=== PATIENT | female | born 1950 | race Caucasian/White ===

== ENCOUNTER → 2016-11-24 | Day surgery (SDC) | payer OTHER ==
[~2016-11-24] MED LIST: ATOR40TA49 PO; CHOL50006 PO; DULO20 PO; ECASA PO; LACTATED RINGER'S 1000 ML INJ 1,000 ML ONE; MOBI7.5T PO; ONABOTULINUMTOXINA INJ 100 UNITS/VIAL ONE; OXYB5TAB PO; PROB1TAB4 PO; PROPOFOL 200 MG/20 ML AMP IV ONE; PROT40TA PO; SODIUM CHLORIDE 0.9% INJ 10 ML ONE; [UNRECOGNIZED DRUG - CODE] PO
== END | disposition home or self-care (01) ==
LOC: ESDC 08:34
PROVIDERS: ATTEND Internal Medicine Gastroenterology
DX: K31.84 Gastroparesis (principal); K44.9 Diaphragmatic hernia without obstruction or gangrene; K29.70 Gastritis, unspecified, without bleeding; K20.9 Esophagitis, unspecified
CPT/HCPCS: 00740; 43236; 43239; 88305; 88312; J0585; J3010; J7120

== ENCOUNTER 2017-04-24 12:22 | Emergency (ER) | payer OTHER ==
[~2017-04-24] VITALS: Ht 154.9 cm; Wt 58.0 kg
[~2017-04-24 12:22] MED LIST changes: -LACTATED RINGER'S 1000 ML INJ 1,000 ML ONE; -ONABOTULINUMTOXINA INJ 100 UNITS/VIAL ONE; -PROPOFOL 200 MG/20 ML AMP IV ONE; -SODIUM CHLORIDE 0.9% INJ 10 ML ONE
[2017-04-24 12:28] VITALS: BP 147/71; PULSE 73; RESP 16; TEMP 98.2; O2SAT 99
[2017-04-24 13:31] VITALS: PULSE 102; RESP 16; O2SAT 98
[2017-04-24] MEDS ORDERED: ACETAMINOPHEN 325 MG TAB PO ONE (14:45)
--- NOTE | 2017-04-24 15:39 | RADRPT ---
EXAM DATE/TIME: 04/24/2017 14:59 [facility] COMPARISON: CT BRAIN W/O CONTRAST, April 03, 2016, 16:36. INDICATIONS : Trauma. Shelf fell and hit her on her forehead. Bruising and pain on forehead. RADIATION DOSE: 64.66 CTDIvol (mGy) MEDICAL HISTORY : Gastroparesis. Irritable bowel syndrome. Posterior fossa disease. SURGICAL HISTORY : Cholecystectomy. Hysterectomy. ENCOUNTER: Initial ACUITY: 1 day PAIN SCALE: 6/10 LOCATION: frontal TECHNIQUE: Multiple contiguous axial images were obtained of the head. Using automated exposure control and adj ustment of the mA and/or kV according to patient size, radiation dose was kept as low as reasonably a chievable to obtain optimal diagnostic quality images. DICOM format image data is available electro nically for review and comparison. FINDINGS: CEREBRUM: The ventricles are normal for age. No evidence of midline shift, mass lesion, hemorrhage or acute in farction. No extra-axial fluid collections are seen. POSTERIOR FOSSA: The cerebellum and brainstem are intact. The 4th ventricle is midline. The cerebellopontine angle i s unremarkable. EXTRACRANIAL: The visualized portion of the orbits is intact. SKULL: The calvaria is intact. No evidence of skull fracture. CONCLUSION: No acute disease. Parviz Lyon Jr., MD on April 24, 2017 at 15:25 Board Certified Radiologist. This report was verified electronically.
--- NOTE | 2017-04-24 16:05 | PD ---
HPI Chief Complaint: Injury Time Seen by Provider: 14:05 Travel History International Travel<30 days: Yes Contact w/Intl Traveler<30days: [place] Traveled to: [facility] [place] Traveled to known affect area: No History of Present Illness HPI A rack of frozen pizzas fell onto patient causing head trauma, RLE contusion, no LOC, no n/v. no neurologic complaints. pt states she has a hx of lower brain swelling, as described by her. no additional complaints. 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 difficulty walking,cataract) Musculoskeletal: Yes (arthritis) Neurologic: No Psychiatric: Yes (panic attack disorder) Reproductive: No Respiratory: No Thyroid Disease: No Tetanus Vaccination: < 5 Years ?: Not Menopausal: Yes Past Surgical History Abdominal Surgery: Yes (lap tio) AICD: No Body Medical Devices: JUAN DAVID R GREAT TOE, SPINAL CORD STIMULATOR Cardiac Surgery: No Cholecystectomy: Yes (2005) Ear Surgery: No Endocrine Surgery: No Eye Surgery: Yes (CATARACT BILATERAL) Genitourinary Surgery: Yes Gynecologic Surgery: Yes (hysterectomy) Hysterectomy: Yes Joint Replacement: No Neurologic Surgery: No Oral Surgery: Yes (WISDOM TEETH EXTRACTION) Pacemaker: No Thoracic Surgery: No Other Surgery: Yes Social History Alcohol Use: Yes (occu) Tobacco Use: No Substance Use: No Allergies-Medications (Allergen,Severity, Reaction): Coded Allergies: No Known Allergies (Verified , 04/26/15) Reported Meds & Prescriptions Reported Meds & Active Scripts Active Lipitor 40 Mg Tab (Atorvastatin Calcium) 40 Mg Tab 40 Mg PO HS 30 Days Aspirin EC (Aspirin) 325 Mg Tab 325 Mg PO DAILY 30 Days Reported Oxybutynin Chloride 5 Mg Tab 5 Mg PO DAILY Protonix (Pantoprazole Sodium) 40 Mg Tabdr 40 Mg PO DAILY Cymbalta (Duloxetine HCl) 20 Mg Cap 20 Mg PO DAILY Vitamin B12 (Cyanocobalamin) 1,000 Cr Tab 500 Mg PO DAILY Vitamin D (Cholecalciferol) 5,000 Unit Tab 5,000 Unit PO DAILY Acidophilus Probiotic (Probiotic Product) 1 Tab Tab 1 Tab PO DAILY OTC ACCUFLORA Mobic (Meloxicam) 7.5 Mg Tab 15 Mg PO DAILY PRN Review of Systems General / Constitutional: No: Fever Physical Exam Narrative GENERAL: 66 yo F, WNWD, NAD SKIN: Warm and dry. Contusion RLE. HEAD: Normocephalic. Contusion midline forehead. EYES: No scleral icterus. No injection or drainage. NECK: Supple, trachea midline. No JVD or lymphadenopathy. CARDIOVASCULAR: Regular rate and rhythm without murmurs, gallops, or rubs. RESPIRATORY: Breath sounds equal bilaterally. No accessory muscle use. GASTROINTESTINAL: Abdomen soft, non-tender, nondistended. MUSCULOSKELETAL: No cyanosis, or edema. BACK: Nontender without obvious deformity. No CVA tenderness. Data Data Last Documented VS Vital Signs Date Time Temp Pulse Resp B/P (MAP) Pulse Ox O2 Delivery O2 Flow Rate FiO2 04/24/17 16:22 04/24/17 13:31 102 16 98 04/24/17 12:28 98.2 Room Air VS reviewed 147/[address] Brain W/O Iv Contrast(Rout) (04/24/17 14:36) Acetaminophen (Tylenol) (04/24/17 14:45) MDM Medical Decision Making Medical Screen Exam Complete: Yes Emergency Medical Condition: Yes Differential Diagnosis ICH, cerebral edema, skull fracture Narrative Course Last [address] 04/24/17 1436 Signed Impressions: Service Date/Time: Monday, April 24, 2017 14:59 - CONCLUSION: No acute disease. Parviz Lyon Jr., MD Pt reassured. pt ready for discahrge. Diagnosis Primary Impression: Head trauma Qualified Codes: S09.90XA - Unspecified injury of head, initial encounter Additional Impressions: Forehead contusion Qualified Codes: S00.83XA - Contusion of other part of head, initial encounter Contusion of right tibia Referrals: Primary Care Physician 2 days Additional Instructions: You have a choice when it comes to health care, and we are glad that you chose [facility]. Hopefully, we have met your expectations on today's visit. You are welcome to return to [facility] at any time, as we are committed to meeting the health care needs of our community. Med/Other Pt SpecificInfo: No Change to Meds Disposition: 01 DISCHARGE HOME Condition: Stable Meet Jay MD Apr 24, 2017 16:05
== END 2017-04-24 16:21 | disposition home or self-care (01) ==
LOC: PHED 12:22 → PHEFT 16:21
DX: S00.83XA Contusion of other part of head, initial encounter (principal); S80.11XA Contusion of right lower leg, initial encounter; W20.8XXA Other cause of strike by thrown, projected or falling object, initial encounter; E78.00 Pure hypercholesterolemia, unspecified; K21.9 Gastro-esophageal reflux disease without esophagitis; K58.9 Irritable bowel syndrome, unspecified; R26.2 Difficulty in walking, not elsewhere classified; M19.90 Unspecified osteoarthritis, unspecified site; Z90.49 Acquired absence of other specified parts of digestive tract
CPT/HCPCS: 70450; 99284

== ENCOUNTER 2017-07-17 22:24 | Emergency (ER) | payer OTHER ==
[~2017-07-17] VITALS: Ht 152.4 cm; Wt 58.0 kg
[~2017-07-17 22:24] MED LIST changes: +IOHEXOL 350 MG/ML 10 ML VIAL (for RAD DIAG) IVCONTRAST ONE
[2017-07-17 22:36] VITALS: BP 136/80; PULSE 90; RESP 20; TEMP 98.9; O2SAT 100
[2017-07-17 22:57] LABS: AUTOMATED NEUTROPHIL # 2.4 TH/MM3 (1.8-7.7); EOSINOPHIL # 0.1 TH/MM3 (0-0.4); EOSINOPHIL % 2.4 % (0.0-4.0); HEMO FLAGS DIFF FINAL; LYMPH % 38.3 % (9.0-44.0); MEAN CELL VOLUME 89.4 FL (80.0-100.0); MEAN CORPUSCULAR HGB CONC 33.6 % (32.0-36.0); MONO % 12.7 % (0.0-8.0); NEUT % 45.6 % (16.0-70.0); PLATELET COUNT 207 TH/MM3 (150-450); RED BLOOD COUNT 3.81 MIL/MM3 (4.00-5.30); RED CELL DISTRIBUTION WIDTH 13.8 % (11.6-17.2); WHITE BLOOD COUNT 5.1 TH/MM3 (4.0-11.0)
--- NOTE | 2017-07-17 23:07 | PD ---
HPI Chief Complaint: Abdominal Pain Time Seen by Provider: 23:04 Travel History International Travel<30 days: No Contact w/Intl Traveler<30days: No Traveled to known affect area: No History of Present Illness HPI 66-year-old female patient presents to the ER today with one-day history of right lower quadrant abdominal pain, nausea, vomiting, states the pain is currently an 10 out of 10. She states this started slowly and got worse throughout the day. She denies any urinary symptoms, fevers, diarrhea, or other symptoms. She does not know any alleviating or exacerbating factors. She states that she has a pain stimulator her back and she feels like she is having pains and needles in that area also. 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 difficulty walking) Musculoskeletal: Yes (arthritis) Neurologic: No Psychiatric: Yes (panic attack disorder) Reproductive: No Respiratory: No Thyroid Disease: No Menopausal: Yes Past Surgical History Abdominal Surgery: Yes (lap tio) AICD: No Body Medical Devices: JUAN DAVID R GREAT TOE, SPINAL CORD STIMULATOR Cardiac Surgery: No Cholecystectomy: Yes (2005) Ear Surgery: No Endocrine Surgery: No Eye Surgery: Yes (CATARACT BILATERAL) Genitourinary Surgery: Yes Gynecologic Surgery: Yes (hysterectomy) Hysterectomy: Yes Joint Replacement: No Neurologic Surgery: No Oral Surgery: Yes (WISDOM TEETH EXTRACTION) Pacemaker: No Thoracic Surgery: No Other Surgery: Yes Social History Alcohol Use: Yes (occu) Tobacco Use: No Substance Use: No Allergies-Medications (Allergen,Severity, Reaction): Coded Allergies: No Known Allergies (Verified , 04/26/15) Reported Meds & Prescriptions Reported Meds & Active Scripts Active Reported Bethanechol 10 Mg Tab 10 Mg PO BID Protonix (Pantoprazole Sodium) 40 Mg Tab 40 Mg PO DAILY Oxybutynin ER 24 HR (Oxybutynin Chloride) 5 Mg Tab 5 Mg PO DAILY Meloxicam 7.5 Mg Tab 7.5 Mg PO DAILY Cymbalta DR (Duloxetine HCl) 20 Mg Capdr 20 Mg PO DAILY Vitamin B-12 (Cyanocobalamin) 500 Mcg Tab 500 Mcg PO DAILY Vitamin D (Cholecalciferol) 2,000 Unit Tab 5,000 PO DAILY Lipitor (Atorvastatin Calcium) 40 Mg Tab 40 Mg PO HS Aspirin 325 Mg Tab 325 Mg PO DAILY Review of Systems Except as stated in HPI: all other systems reviewed are Neg Physical Exam Narrative GENERAL: Well-developed elderly white female patient in moderate distress. Awake and oriented 3. SKIN: Focused skin assessment warm/dry. HEAD: Atraumatic. Normocephalic. EYES: Pupils equal and round. No scleral icterus. No injection or drainage. ENT: No nasal bleeding or discharge. Mucous membranes pink and moist. NECK: Trachea midline. No JVD. CARDIOVASCULAR: Regular rate and rhythm. No murmur appreciated. RESPIRATORY: No accessory muscle use. Clear to auscultation. Breath sounds equal bilaterally. GASTROINTESTINAL: Abdomen soft, right lower quadrant tenderness without guarding or rebound, nondistended. Hepatic and splenic margins not palpable. BACK: No CVA tenderness. No rash. No point tenderness on palpation of the spine. MUSCULOSKELETAL: No obvious deformities. No clubbing. No cyanosis. No edema. NEUROLOGICAL: Awake and alert. No obvious cranial nerve deficits. Motor grossly within normal limits. Normal speech. PSYCHIATRIC: Appropriate mood and affect; insight and judgment normal. Data Data Last Documented VS Vital Signs Date Time Temp Pulse Resp B/P (MAP) Pulse Ox O2 Delivery O2 Flow Rate FiO2 07/17/17 22:36 98.9 90 20 136/80 (98) 100 Room Air Orders Orders Complete Blood Count With Diff (07/17/17 22:30) Comprehensive Metabolic Panel (07/17/17 22:30) Urinalysis - C+S If Indicated (07/17/17 22:30) Lipase (07/17/17 22:30) Ct Abd/Pel W Iv Contrast(Rout) (07/17/17 23:04) Hydromorphone Pf Inj (Dilaudid Pf Inj) (07/17/17 23:15) Ondansetron Inj (Zofran Inj) (07/17/17 23:15) Iohexol 350 Inj (Omnipaque 350 Inj) (07/17/17 01:17) Labs Laboratory Tests Test 07/17/17 22:41 07/17/17 22:56 White Blood Count 5.1 TH/MM3 Red Blood Count 3.81 MIL/MM3 Hemoglobin 11.4 GM/DL Hematocrit 34.0 % Mean Corpuscular Volume 89.4 FL Mean Corpuscular Hemoglobin 30.0 PG Mean Corpuscular Hemoglobin Concent 33.6 % Red Cell Distribution Width 13.8 % Platelet Count 207 TH/MM3 Mean Platelet Volume 8.2 FL Neutrophils (%) (Auto) 45.6 % Lymphocytes (%) (Auto) 38.3 % Monocytes (%) (Auto) 12.7 % Eosinophils (%) (Auto) 2.4 % Basophils (%) (Auto) 1.0 % Neutrophils # (Auto) 2.4 TH/MM3 Lymphocytes # (Auto) 2.0 TH/MM3 Monocytes # (Auto) 0.7 TH/MM3 Eosinophils # (Auto) 0.1 TH/MM3 Basophils # (Auto) 0.0 TH/MM3 CBC Comment DIFF FINAL Differential Comment Blood Urea Nitrogen 17 MG/DL Creatinine 0.94 MG/DL Random Glucose 98 MG/DL Total Protein 6.4 GM/DL Albumin 3.7 GM/DL Calcium Level 8.4 MG/DL Alkaline Phosphatase 60 U/L Aspartate Amino Transf (AST/SGOT) 21 U/L Alanine Aminotransferase (ALT/SGPT) 24 U/L Total Bilirubin 0.4 MG/DL Sodium Level 143 MEQ/L Potassium Level 3.2 MEQ/L Chloride Level 107 MEQ/L Carbon Dioxide Level 26.2 MEQ/L Anion Gap 10 MEQ/L Estimat Glomerular Filtration Rate 60 ML/MIN Lipase 108 U/L Urine Color LIGHT-YELLOW Urine Turbidity CLEAR Urine pH 8.0 Urine Specific [place] 1.009 Urine Protein NEG mg/dL Urine Glucose (UA) NEG mg/dL Urine Ketones TRACE mg/dL Urine Occult Blood SMALL Urine Nitrite NEG Urine Bilirubin NEG Urine Urobilinogen LESS THAN 2.0 MG/DL Urine Leukocyte Esterase TRACE Urine RBC 4-9 /hpf Urine WBC 0-2 /hpf Urine Squamous Epithelial Cells > 8 /hpf Urine Bacteria OCC /hpf Microscopic Urinalysis Comment CULT NOT INDICATED MDM Medical Decision Making Medical Screen Exam Complete: Yes Emergency Medical Condition: Yes Medical Record Reviewed: Yes Interpretation(s) Laboratory Tests Test 07/17/17 22:41 07/17/17 22:56 Red Blood Count 3.81 MIL/MM3 (4.00-5.30) Hemoglobin 11.4 GM/DL (11.6-15.3) Hematocrit 34.0 % (35.0-46.0) Monocytes (%) (Auto) 12.7 % (0.0-8.0) Calcium Level 8.4 MG/DL (8.5-10.1) Potassium Level 3.2 MEQ/L (3.5-5.1) Estimat Glomerular Filtration Rate 60 ML/MIN (>89) Urine Ketones TRACE mg/dL (NEG) Urine Occult Blood SMALL (NEG) Urine Leukocyte Esterase TRACE (NEG) Urine RBC 4-9 /hpf (0-3) Urine Squamous Epithelial Cells > 8 /hpf (0-5) Urine Bacteria OCC /hpf (NONE) Last 24 hours Impressions Abdomen/Pelvis CT 07/17/17 8530 Signed Impressions: Service Date/Time: Thursday, July 18, 2017 01:06 - CONCLUSION: 1. 2 mm calcified stone at ureterovesical junction causing mild dilation of the collecting system and moderate dilation of the right ureter. 2. Cholecystectomy with dilated intrahepatic and extrahepatic biliary system up to 9 mm. The common bile duct is dilated down to the ampulla. This could be reservoir effect from cholecystectomy, but since there is dilation of the central intrahepatic ducts, recommend performing hepatobiliary tract scan to evaluate for evidence of biliary obstruction. Parviz Hardin MD Differential Diagnosis Right lower quadrant abdominal pains with nausea and vomiting: Renal colic versus pyelonephritis versus appendicitis versus gastroenteritis Narrative Course Abdomen is fairly benign and I do not think that this is an acute intra- abdominal process. Her urine shows blood but no signs of UTI. Her CAT scan is showing a 2 mm stone causing mild hydronephrosis. There is also signs of dilated bile ducts and the patient has had a cholecystectomy. However, symptoms as well as blood in the urine are more indicative of renal colic. I think that a underlying biliary colic is much less likely in this case. Liver enzymes are normal. Right upper quadrant exam was fairly unremarkable. My plan would be to release her with symptomatic relief or pain and plenty of fluids, follow-up with primary care physician and return for any worsening in symptoms as needed. The plan has been discussed with her and she states understanding. Diagnosis Primary Impression: Renal colic on right side Med/Other Pt SpecificInfo: Prescription(s) given Scripts Oxycodone-Acetaminophen (Percocet) 5-325 mg Tab 1 TAB PO Q6H Y for PAIN, #15 TAB 0 Refills Prov: Ariel Price MD 07/18/17 Disposition: 01 DISCHARGE HOME Condition: Stable Ariel Price MD Jul 17, 2017 23:07
[2017-07-17] MEDS ORDERED: ONDANSETRON HCL 4 MG/2 ML VIAL IV PUSH ONE (23:15)
[2017-07-17] MEDS ORDERED: HYDROmorphone HCL PF 1 MG/ML VIAL IV PUSH ONE (23:15)
[2017-07-17 23:21] LABS: ALT (GPT) 24 U/L (10-53); ANION GAP 10 MEQ/L (5-15); AST (GOT) 21 U/L (15-37); BICARBONATE 26.2 MEQ/L (21.0-32.0); BLOOD UREA NITROGEN 17 MG/DL (7-18); CHLORIDE 107 MEQ/L (98-107); GLOMERULAR FILTRATION RATE 60 ML/MIN (>89); POTASSIUM 3.2 MEQ/L (3.5-5.1); SODIUM (NA) 143 MEQ/L (136-145)
[2017-07-17 23:22] LABS: BLOOD, URINE SMALL (NEG); GLUCOSE,URINE NEG (NEG); KETONE, URINE TRACE mg/dL (NEG); NITRITE,URINE NEG (NEG); URINE COLOR LIGHT-YELLOW (YELLW/STRAW)
[2017-07-17 23:23] LABS: ALKALINE PHOSPHATASE 60 U/L (45-117); TOTAL BILIRUBIN ADULT 0.4 MG/DL (0.2-1.0)
[2017-07-17] MEDS ORDERED: ASPI-183 PO (23:44)
[2017-07-17] MEDS ORDERED: PROT40TA PO (23:44)
[2017-07-17] MEDS ORDERED: VITA20003 PO (23:44)
[2017-07-17] MEDS ORDERED: MELO7.5T27 PO (23:44)
[2017-07-17] MEDS ORDERED: VITA500T4 PO (23:44)
[2017-07-17] MEDS ORDERED: OXYB5TAB PO (23:44)
[2017-07-17] MEDS ORDERED: DULO20 PO (23:44)
[2017-07-17] MEDS ORDERED: LIPI40TA PO (23:44)
[2017-07-17] MEDS ORDERED: BETH10TA2 PO (23:44)
[2017-07-17 23:51] LABS: SQUAMOUS EPITHELIAL CELL URINE > 8 /hpf (0-5); WBC, URINE 0-2 /hpf (0-5)
[2017-07-17 23:52] LABS: BACTERIA, URINE OCC /hpf; COMMENT (UR) CULT NOT INDICATED; CULTURE IF INDICATED CULT NOT INDICATED
--- NOTE | 2017-07-18 01:38 | RADRPT ---
EXAM DATE/TIME: 07/18/2017 01:06 [facility] COMPARISON: No previous studies available for comparison. INDICATIONS : Abdominal pain. IV CONTRAST: 100 cc Omnipaque 350 (iohexol) IV ORAL CONTRAST: No oral contrast ingested. RADIATION DOSE: 6.64 CTDIvol (mGy) MEDICAL HISTORY : Gastroparesis. Gastroesophageal reflux disease. SURGICAL HISTORY : Hysterectomy. Cholecystectomy.Pain pump. ENCOUNTER: Initial ACUITY: 1 day PAIN SCALE: 8/10 LOCATION: abdomen TECHNIQUE: Volumetric scanning of the abdomen and pelvis was performed. Using automated exposure control and ad justment of the mA and/or kV according to patient size, radiation dose was kept as low as reasonably achievable to obtain optimal diagnostic quality images. DICOM format image data is available electro nically for review and comparison. FINDINGS: LOWER LUNGS: Mild linear scarring or atelectasis in the lower lungs without focal infiltrates. LIVER: No focal masses seen. There is mild dilation of the central biliary ducts and a common bile duct is also dilated measuring 9 mm. Cholecystectomy. The common bile duct is dilated down to the ampulla. SPLEEN: Normal size without lesion. PANCREAS: The pancreatic duct is mildly prominent in the body and head. The pancreatic duct appears to have a separate orifice into the duodenum, anterior and superior to the dilated common bile duct. KIDNEYS: No calcified renal stones on either side. The collecting system of the right kidney is slightly prom inent and the extrarenal pelvis is prominent. The right ureter is dilated along its course, measurin g up to 9 mm. In the distal right ureter at the ureterovesical junction, there is a 2 mm calcified s tone. No evidence of hydronephrosis on the left side. No evidence of renal mass. ADRENAL GLANDS: Within normal limits. VASCULAR: There is no aortic aneurysm. BOWEL/MESENTERY: No dilated loops of small or large bowel. The appendix is identified in the right lower quadrant and has a normal appearance. ABDOMINAL WALL: Within normal limits. RETROPERITONEUM: There is no lymphadenopathy. BLADDER: No wall thickening or mass. REPRODUCTIVE: Within normal limits. INGUINAL: There is no lymphadenopathy or hernia. MUSCULOSKELETAL: Prominent degenerative changes in the posterior elements of lower lumbar spine. Spinal stimulator el ectrodes in place. CONCLUSION: 1. 2 mm calcified stone at ureterovesical junction causing mild dilation of the collecting system and moderate dilation of the right ureter. 2. Cholecystectomy with dilated intrahepatic and extrahepatic biliary system up to 9 mm. The common bile duct is dilated down to the ampulla. This could be reservoir effect from cholecystectomy, but s patricio there is dilation of the central intrahepatic ducts, recommend performing hepatobiliary tract sc an to evaluate for evidence of biliary obstruction. Parviz Hardin MD on July 18, 2017 at 1:30 Board Certified Radiologist. This report was verified electronically.
[2017-07-18] MEDS ORDERED: PERC5TAB12 PO (02:03)
== END 2017-07-18 02:27 | disposition home or self-care (01) ==
LOC: NEPE 22:24
DX: N23 Unspecified renal colic (principal); E78.00 Pure hypercholesterolemia, unspecified; Z90.49 Acquired absence of other specified parts of digestive tract
CPT/HCPCS: 74177; 80053; 81001; 83690; 85025; 96374; 96375; 99285; J1170; J2405; Q9967

== ENCOUNTER → 2017-09-25 | Outpatient (CLI) | payer MEDICARE ==
[~2017-09-25] MED LIST changes: +ASPI-183 PO; -ATOR40TA49 PO; +BETH10TA2 PO; -CHOL50006 PO; +CYMB60CA PO; -ECASA PO; +ESTR1TAB PO; -IOHEXOL 350 MG/ML 10 ML VIAL (for RAD DIAG) IVCONTRAST ONE; +LIPI40TA PO; +MELO7.5T27 PO; -MOBI7.5T PO; +PERC5TAB12 PO; +PRAV40TA2 PO; -PROB1TAB4 PO; +VITA20003 PO; +VITA500T4 PO; -[UNRECOGNIZED DRUG - CODE] PO
--- NOTE | 2017-09-25 11:25 | RADRPT ---
EXAM DATE/TIME: 09/25/2017 11:00 [facility] COMPARISON: No previous studies available for comparison. INDICATIONS : Evaluate for pneumonia, pneumothorax or communicable disease. Preop chest for left shoulder replaceme nt on10/07/2017 MEDICAL HISTORY : None. SURGICAL HISTORY : Cholecystectomy. spinal pain stimulator ENCOUNTER: Initial ACUITY: 1 day PAIN SCORE: 0/10 LOCATION: Bilateral chest FINDINGS: PA and lateral views of the chest demonstrate the lungs to be symmetrically aerated without evidence of mass, infiltrate or effusion. The cardiomediastinal contours are unremarkable. Osseous structure s are intact. Catheters overlie the spine. CONCLUSION: No acute disease. Parviz Lyon Jr., MD on September 25, 2017 at 11:22 Board Certified Radiologist. This report was verified electronically.
--- NOTE | 2017-09-26 14:26 | EKG ---
Date Performed: 09/25/2017 Time Performed: 10:40:16 PTAGE: 67 years EKG: Possible ectopic atrial rhythm. Borderline ECG PREVIOUS TRACING : 07/11/2015 09.55 Previous artifact has resolved. Appears unchanged. DOCTOR: Alexey Melara Interpretating Date/Time 09/26/2017 14:25:39
== END ==
LOC: CPRE 09:56
PROVIDERS: ATTEND Orthopaedic Surgery
DX: Z01.810 Encounter for preprocedural cardiovascular examination (principal); Z01.811 Encounter for preprocedural respiratory examination; Z01.812 Encounter for preprocedural laboratory examination; R94.31 Abnormal electrocardiogram [ECG] [EKG]
CPT/HCPCS: 71046; 93005

== ENCOUNTER 2017-10-07 08:22 | Inpatient (IN) | payer MEDICARE ==
--- NOTE | 2017-10-06 13:26 | MH ---
cc: ANDREI MONTOYA DATE OF ADMISSION 10/07/2017 DATE OF 1950 DIAGNOSIS Osteoarthritis left shoulder PROPOSED SURGERY Total shoulder arthroplasty left shoulder, possible reverse shoulder arthroplasty. ALLERGIES None PERSONAL HISTORY She is a nonsmoker. 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 PAST HISTORY 1. She has history of chronic pain, especially in her back and she has a spinal cord stimulator. 2. She has high blood pressure. 3. Gastroesophageal reflux disease PAST SURGERIES 1. Spinal cord stimulator 2. Two right shoulder surgeries, first one open, second one Arthroscopic. 3. Hysterectomy 4. Cholecystectomy 5. Trigger finger MEDICATIONS 1. Aspirin 81 mg daily 2. Bethanechol 25 mg daily 3. Duloxetine 60 mg daily 4. Estradiol 5. Loratadine 6. Meloxicam 7. Pantoprazole 8. Oxybutynin 9. Pravastatin 10. Tamsulosin 11. She also takes vitamins and supplements. PRESENT HISTORY The patient has a long history of bilateral shoulder problems. She has primary osteoarthritis of the left shoulder. She has rotator cuff arthropathy of the right shoulder. She has had end-stage pain medicine injections, etc. It has come to the point which she is not getting any better, therefore she is being scheduled for a total shoulder arthroplasty. Recent CT scan arthrogram reveals no evidence of full-thickness rotator cuff tear. No significant glenoid wear noted. PHYSICAL EXAM Physical examination reveals a 5 feet tall, 140 pounds white female who is awake, alert and oriented. HEAD: Normocephalic. EYES: Pupils react to light. ENT: Unremarkable. HEART: Regular rhythm. No murmurs. LUNGS: Clear to auscultation. ABDOMEN: Soft and supple. EXTREMITIES: Left shoulder reveals painful restriction range of motion of a mild to moderate degree. No neurovascular deficit left hand. Skin condition of the left shoulder is good. The diagnosis, treatment, the prognosis and the potential risks, hazards, complications and expected results have all been discussed with the patient. Pain management and postoperative course discussed. A detailed informed consent documented on the office records. MD MARICRUZ Mao/ELIZA /1:06 PM /1:14 PM
[~2017-10-07] VITALS: Ht 152.4 cm; Wt 56.0 kg
[~2017-10-07 08:22] MED LIST changes: -DULO20 PO; -LIPI40TA PO
[2017-10-07] MEDS ORDERED: POVIDONE IODINE 7.5% SCRUB 118 ML BOTTLE TOPICAL SCH (09:00)
[2017-10-07] MEDS ORDERED: VANCOMYCIN 1 GM/200 ML PREMIX IV SCH (09:00)
[2017-10-07] MEDS ORDERED: SODIUM CHLORID 0.9% 500 ML IV PRN (09:00)
[2017-10-07] MEDS ORDERED: CHLORHEXIDINE GLUCONATE 2 % 1 PACK (2 CLOTHS) TOPICAL PRN (09:00)
[2017-10-07] MEDS ORDERED: LACTATED RINGER'S 1000 ML IV PRN (09:00)
[2017-10-07] MEDS ORDERED: INSULIN HUMAN REGULAR 1,000 UNITS/10 ML VIAL SQ PRN (09:00)
[2017-10-07] MEDS ORDERED: METOPROLOL TARTRATE 25 MG TAB PO PRN (09:00)
[2017-10-07] MEDS ORDERED: ceFAZolin 2 GM PREMIX 50 ML IV SCH (09:00)
[2017-10-07] MEDS ORDERED: POVIDONE IODINE 5% (ANTISEPSIS KIT) 4 APPLICATIONS EACH NARE PRN (09:00)
[2017-10-07] MEDS ORDERED: LIDOCAINE HCL 1% PF 5 ML AMPULE ONE (10:13)
[2017-10-07] MEDS ORDERED: MIDAZOLAM HCL 2 MG/2 ML VIAL ONE (10:13)
[2017-10-07] MEDS ORDERED: BUPIVACAINE HCL PF 0.5% 30 ML VIAL ONE (10:13)
[2017-10-07] MEDS ORDERED: GENTAMICIN SULFATE 80 MG/2 ML VIAL ONE (10:44)
[2017-10-07] MEDS ORDERED: EPINEPHrine HCL (1:1000) 1 MG/ML VIAL ONE (11:28)
[2017-10-07] MEDS ORDERED: ROCURONIUM INJ 50 MG/5 ML SYRINGE IV PUSH ONE (12:00)
[2017-10-07] MEDS ORDERED: GLYCOPYRROLATE 1 MG/5 ML SYRINGE IV PUSH ONE (12:00)
[2017-10-07] MEDS ORDERED: LIDOCAINE HCL 1% PF 5 ML SYRINGE OTHER ONE (12:00)
[2017-10-07] MEDS ORDERED: ONDANSETRON HCL 4 MG/2 ML VIAL IV ONE (12:00)
[2017-10-07] MEDS ORDERED: PHENYLEPH/NS 1000 MCG/10 ML SYR IV ONE (12:00)
[2017-10-07] MEDS ORDERED: NEOSTIGMINE 5 MG/5 ML SYRINGE IV PUSH ONE (12:00)
[2017-10-07] MEDS ORDERED: PROPOFOL 200 MG/20 ML AMP IV ONE (12:00)
[2017-10-07] MEDS ORDERED: BUPIVACAINE HCL PF 0.5% 30 ML VIAL NERV BLOCK ONE (12:30)
[2017-10-07] MEDS ORDERED: LIDOCAINE HCL 1% PF 5 ML AMPULE NERV BLOCK ONE (12:30)
[2017-10-07] MEDS ORDERED: MIDAZOLAM HCL 2 MG/2 ML VIAL IV PUSH ONE (12:30)
[2017-10-07] MEDS ORDERED: NALOXONE HCL 0.4 MG/ML AMP IV PUSH PRN (15:00)
[2017-10-07] MEDS ORDERED: PROMETHAZINE HCL 25 MG TAB PO PRN (15:00)
[2017-10-07] MEDS ORDERED: MAGNESIUM HYDROXIDE SUSP 30 ML CUP PO PRN (15:00)
[2017-10-07] MEDS ORDERED: Post-op Orders (for Pharmacy) XX ONE (15:00)
[2017-10-07] MEDS ORDERED: diphenhydrAMINE HCL 50 MG/ML VIAL IV PUSH PRN (15:00)
[2017-10-07] MEDS: SODIUM CHLOR 0.9% 1000 ML INJ 1,000 ML IV SCH (15:00)
[2017-10-07] MEDS ORDERED: MORPHINE SULFATE 4 MG/ML INJ IV PUSH PRN (15:00)
[2017-10-07] MEDS ORDERED: HYDR-3516 PO (15:13)
--- NOTE | 2017-10-07 15:16 | HHI.FF ---
Face to Face Verification Diagnosis: (1) Status post total shoulder arthroplasty Physical Therapy Other (pendulum exercises 1 week post op. AROM elbow and wrist now) Occupational Therapy Left UE Weight Bearing: Non WB Left UE Range of Motion: Pendular (at 1 week postop) Nursing Nursing: Dressing changes (at one week postop) Dressing Changes: Coverderm/Primapore (after first week) I have seen patient Kyra Espinoza on 10/07/17. My clinical findings support the need for the requested home health care services because: Limited ability to care for self I certify that my clinical findings support that this patient is homebound because: Unable to use public transportation Flavio Gates MD Oct 07, 2017 15:16
[2017-10-07] MEDS ORDERED: DO NOT ADM ANY ANTICOAGULANT DRUGS PRN (15:30)
[2017-10-07] MEDS ORDERED: *ONDANSETRON 4 MG VIAL PERIprocedural Use ONLY ONE (15:31)
[2017-10-07] MEDS ORDERED: *PROMETHAZINE 25 MG/ML VIAL PERIprocedural use ONLY ONE (16:06)
[2017-10-07] MEDS ORDERED: APREPITANT 40 MG CAP PO ONE (16:30)
[2017-10-07] MEDS ORDERED: APREPITANT 40 MG CAP ONE (16:37)
[2017-10-07] MEDS ORDERED: METOCLOPRAMIDE HCL 10 MG/2 ML VIAL ONE (16:39)
[2017-10-07] MEDS ORDERED: METOCLOPRAMIDE HCL 10 MG/2 ML VIAL IV ONE (16:40)
--- NOTE | 2017-10-07 16:43 | RADRPT ---
EXAM DATE/TIME: 10/07/2017 15:26 [facility] COMPARISON: No previous studies available for comparison. INDICATIONS : Post op left shoulder. MEDICAL HISTORY : None. SURGICAL HISTORY : Cholecystectomy. spinal pain stimulator. ENCOUNTER: Initial ACUITY: 1 day PAIN SCORE: Non-responsive. LOCATION: Left shoulder. FINDINGS: Status post-arthroplasty left shoulder. Anatomic alignment without fracture. Lung apex clear. CONCLUSION: Anatomic alignment.. Beau Pizano MD FACR on October 07, 2017 at 16:40 Board Certified Radiologist. This report was verified electronically.
[2017-10-07] MEDS: ceFAZolin 2 GM PREMIX 50 ML IV SCH (18:00)
[2017-10-07 19:17] VITALS: BP 96/62; PULSE 116; RESP 18; TEMP 96.9; O2SAT 99
[2017-10-07] MEDS: ONDANSETRON HCL 4 MG/2 ML VIAL IVP PRN (19:54)
[2017-10-07] MEDS ORDERED: ZOLPIDEM TARTRATE 5 MG TAB PO PRN (21:00)
[2017-10-07] MEDS: BETHANECHOL CHL 10 MG TAB PO SCH (22:09)
[2017-10-07] MEDS: PRAVASTATIN SOD 40 MG TAB PO SCH (22:26)
[2017-10-07 23:00] VITALS: BP 91/62; PULSE 112; RESP 17; TEMP 96.9; O2SAT 95
[2017-10-07] MEDS ORDERED: VANCOMYCIN INJ 1,000 MG in SODIUM CHLOR 0.9% 250 ML INJ 250 ML IV SCH (23:00)
[2017-10-08] MEDS: ONDANSETRON HCL 4 MG/2 ML VIAL IVP PRN (01:43)
[2017-10-08] MEDS: ceFAZolin 2 GM PREMIX 50 ML IV SCH (01:45)
[2017-10-08] MEDS: SODIUM CHLOR 0.9% 1000 ML INJ 1,000 ML IV SCH ×3 (01:45→22:18)
[2017-10-08 04:18] VITALS: BP 99/63; PULSE 108; RESP 18; TEMP 98.3; O2SAT 98
[2017-10-08] MEDS: traMADol HCL 50 MG TAB PO PRN ×4 (06:18→18:36)
[2017-10-08 06:36] LABS: HEMATOCRIT 31.2 % (35.0-46.0); HEMOGLOBIN 10.4 GM/DL (11.6-15.3)
[2017-10-08 06:59] LABS: BICARBONATE 27.2 MEQ/L (21.0-32.0); CALCIUM 8.4 MG/DL (8.5-10.1); CREATININE 0.63 MG/DL (0.50-1.00)
[2017-10-08 08:00] VITALS: BP 92/65; PULSE 105; RESP 17; TEMP 98; O2SAT 95
[2017-10-08] MEDS: BETHANECHOL CHL 10 MG TAB PO SCH ×2 (08:33→22:21)
[2017-10-08] MEDS: TOLTERODINE TARTRATE 2 MG CAP LA PO SCH (08:33)
[2017-10-08] MEDS: DULoxetine HCl DR 60 MG CAP PO SCH (08:33)
[2017-10-08] MEDS: ESTRADIOL 1 MG TAB PO SCH (08:33)
[2017-10-08] MEDS: CYANOCOBALAMIN 1,000 MCG TAB PO SCH (08:33)
[2017-10-08] MEDS: PANTOPRAZOLE SOD 40 MG DELAYED RELEASE TAB PO SCH (08:33)
[2017-10-08] MEDS: ACETAMINOPHEN 1000 MG/100 ML VIAL IV SCH ×2 (08:36→22:18)
[2017-10-08] MEDS: ASPIRIN EC 325 MG TABEC PO SCH (09:00)
--- NOTE | 2017-10-08 10:14 | MP ---
cc: ANDREI GATES DATE OF SURGERY: October 07, 2017 PREOPERATIVE DIAGNOSIS Primary osteoarthritis, left shoulder. POSTOPERATIVE DIAGNOSIS Primary osteoarthritis, left shoulder. OPERATIVE PROCEDURE Total shoulder arthroplasty left shoulder using DJO components. We used a porous coated 8 mm stem, a 42 mm offset head with standard neck length. We used a small glenoid component cemented. SURGEON Dr. Gates. ANESTHESIA General. TECHNIQUE After induction of general anesthesia with endotracheal intubation the patient was placed in a beach-chair position using [employer] positioner and we had good positioning of the patient in about 60 degree beach-chair. Lower extremities were properly secured and protected. Head and neck were properly positioned. The left upper extremity was thoroughly prepped with alcohol and ChloraPrep, draped in routine fashion using Ioban drapes. A deltopectoral incision was made, deepened through subcutaneous tissue. Deltopectoral interval was found, cephalic vein was isolated and a retractor with the deltoid. Upper 1 cm attachment of the pectoralis major was released. Biceps tendon sheath was opened. The circumflex vessels were cauterized at the lower margin of the subscapularis of the shoulder in external rotation. Biceps tenotomy was carried out, tenodesis carried out to the pectoralis major and the residual tendon discarded. The lesser tuberosity osteotomy was now carried out through the bicipital groove and initial cut seemed like it would have very little bone, therefore it was deepened but it ended up taking a piece of the head which was a loose body. The superior and inferior portion of the subscapularis was released carefully particularly keeping in mind the location of the axillary nerve. Joint was exposed and humeral head osteotomy carried out using the osteotomy guide. Glenoid was exposed following routine technique of inferior capsulotomy and excision of the glenoid labrum and release of some of the posterior and inferior capsule. No obvious deformity was noted to the glenoid. Sizing was carried out. Center of the glenoid was marked with Bovie. A drill wire was placed in the center of the glenoid and a hemispherical reamer was used to ream it. Anchoring holes were made for the glenoid component and a trial implant placed, fits very nicely. Using simplex cement the glenoid component was then cemented in place and all excess cement removed. Humerus was extracted from the joint with proper exposure, the canal was reamed to 8 mm followed by introduction of 8 mm trial. A offset head was placed to cover the head surface and the reduction was carried out and everything looks good, both in terms of stability and just the right amount of laxity and good range of motion. Drill holes were placed lateral to the site of the osteotomy and doubled #2 Fiber-Wires were passed through it and held with hemostats. We have a bit of a defect anteriorly of the neck which was later filled with cancellus bone. The stem was then impacted in place with cancellus bone in the proximal portion to get good fit, the proper rotation. The head was impacted in place with proper offset to cover the superior portion of the neck. Shoulder was reduced and we had the same results as with the trial. We now proceeded to repair the subscapularis with a small sliver of bone attached to the undersurface. Prior to this we placed a piece of cancellus bone in the humeral neck and the sutures that was passed to the humerus were then passed through holes in this cancellus piece of bone and then passed through the subscapularis holding the bone in position as well as impacted some cancellus bone chips. The sutures were all tied with the arm in an internal rotation in a rack and hitch fashion getting good fixation and additional #2 FiberWire was used to get good coaptation. Rotator cuff interval was closed with #2 FiberWire. Repair looks good. The wound had been thoroughly lavaged with saline solution before closure and also intermittently through the procedure. In the middle of the procedure the cephalic vein sprung a leak and therefore, it had to be isolated, clamped, cut and ligated with 0-Vicryl. Wound was irrigated with saline solution, there is good hemostasis. Deltopectoral interval closed with #2 Quill, subcutaneous tissue with 2-0 Vicryl, skin with 3-0 subcuticular Quill and Steri-Strips and a super absorbent dressing. The patient was placed in sling and swath and transferred to the recovery room in satisfactory condition. The patient tolerated the procedure well. TRANSFUSIONS AND COMPLICATIONS None. POSTOPERATIVE CONDITION Satisfactory. PROGNOSIS Good. ESTIMATED BLOOD LOSS 350 mL. Andrei Gates MD SS/POLO /3:17 PM 9:42 AM
[2017-10-08 11:59] VITALS: BP 96/63; PULSE 105; RESP 17; TEMP 96.7; O2SAT 94
[2017-10-08] MEDS ORDERED: ZOFR4TAB PO (14:12)
[2017-10-08] MEDS ORDERED: TRAM50TA PO (14:12)
--- NOTE | 2017-10-08 14:16 | PD.ORT.PN ---
Subjective Post Op Day #: 1 Pain Scale: 8 Subjective Remarks lot of pain since block wore off last nite, could not get pain meds bec of low BP, got pain meds today Range of Motion Able to move wrist , elbow and hand well Distance Walked To bath room Objective Vitals Last 72 hours Impressions Shoulder X-Ray 10/07/17 0000 Signed Impressions: Service Date/Time: Saturday, October 07, 2017 15:26 - CONCLUSION: Anatomic alignment.. Beau Pizano MD FACR Vital Signs Date Time Temp Pulse Resp B/P (MAP) Pulse Ox O2 Delivery O2 Flow Rate FiO2 10/08/17 11:59 96.7 105 17 96/63 (74) 94 10/08/17 08:00 98.0 105 17 92/65 (74) 95 10/08/17 04:18 98.3 108 18 99/63 (75) 98 10/07/17 23:00 96.9 112 17 91/62 (72) 95 10/07/17 19:17 96.9 116 18 96/62 (73) 99 10/07/17 18:00 98.0 105 16 108/69 (82) 97 Nasal Cannula 3 10/07/17 17:30 112 16 107/68 (81) 97 Nasal Cannula 3 10/07/17 17:00 106 16 115/74 (88) 97 Nasal Cannula 3 10/07/17 16:45 109 16 112/76 (88) 97 Nasal Cannula 3 10/07/17 16:30 108 17 109/69 (82) 97 Nasal Cannula 3 10/07/17 16:15 105 15 108/68 (81) 97 Nasal Cannula 3 10/07/17 16:00 97 15 106/68 (81) 97 Nasal Cannula 3 10/07/17 15:45 101 14 107/73 (84) 97 Nasal Cannula 3 10/07/17 15:25 97.6 122 15 118/61 (80) 99 Nasal Cannula 3 I/O 10/07/17 10/07/17 10/07/17 10/08/17 10/08/17 10/08/17 07:00 15:00 23:00 07:00 15:00 23:00 Intake Total 2285 ml 360 ml Output Total 300 ml Balance 1985 ml 360 ml Intake Oral 360 ml 360 ml IV Total 1925 ml Output Urine Total 0 ml Estimated Blood Loss 300 ml # Voids 4 3 # Bowel Movements 0 0 Result Diagram: 10/08/1761110/08/17611 Objective Remarks A., A, and O Family at bedside She is scrunched up in bed with ice bag on shoulder and S & S no NV deficit detected LUE Assessment & Plan Ortho Post Op Day #: 1 Problem List: Assessment and Plan Sp TSA left Not ready for DC DC tomorrow with HHC, and Rxs for Hcodone, tramadol and Zofran. To continue ASA To see me Flavio Gates MD Oct 08, 2017 14:16
[2017-10-08 16:25] VITALS: BP 103/71; PULSE 114; RESP 18; TEMP 98.3
[2017-10-08 19:01] VITALS: BP 92/65; PULSE 118; RESP 16; TEMP 96.5; O2SAT 94
[2017-10-08] MEDS: DOCUSATE SODIUM 100 MG CAP PO SCH (22:18)
[2017-10-08] MEDS: PRAVASTATIN SOD 40 MG TAB PO SCH (22:19)
[2017-10-08] MEDS: ACETAMINOPHEN/HYDROcodone 325 MG/5 MG TAB PO PRN (22:20)
[2017-10-09] VITALS: BP 107/63; PULSE 117; RESP 18; TEMP 98.1; O2SAT 95
[2017-10-09 04:00] VITALS: BP 122/64; PULSE 120; RESP 19; TEMP 98.9; O2SAT 94
--- NOTE | 2017-10-09 04:56 | PD.ORT.PN ---
Subjective Post Op Day #: 2 Pain Scale: wakes me up every hour Subjective Remarks comfortable on PO meds Range of Motion not tested Objective Vitals Vital Signs Date Time Temp Pulse Resp B/P (MAP) Pulse Ox O2 Delivery O2 Flow Rate FiO2 10/09/17 00:00 98.1 117 18 107/63 (78) 95 10/08/17 19:01 96.5 118 16 92/65 (74) 94 10/08/17 16:25 98.3 114 18 103/71 (82) 10/08/17 11:59 96.7 105 17 96/63 (74) 94 10/08/17 08:00 98.0 105 17 92/65 (74) 95 I/O 10/08/17 10/08/17 10/08/17 10/09/17 10/09/17 10/09/17 07:00 15:00 23:00 07:00 15:00 23:00 Intake Total 360 ml 480 ml 360 ml Balance 360 ml 480 ml 360 ml Intake Oral 360 ml 480 ml 360 ml # Voids 3 5 2 # Bowel Movements 0 0 0 Result Diagram: 10/08/17 0612 10/08/17 0612 Objective Remarks Was ssleeping, wakes up easily moderate swelling Dressings dry, Moves warm hand well S & S on Assessment & Plan Ortho Post Op Day #: 2 Problem List: Assessment and Plan DC plans Rxs and FU discussed DC today Flavio Gates MD Oct 09, 2017 04:56
[2017-10-09] MEDS: SODIUM CHLOR 0.9% 1000 ML INJ 1,000 ML IV SCH (07:00)
[2017-10-09 07:30] VITALS: BP 110/56; PULSE 120; RESP 19; TEMP 99.8; O2SAT 92
[2017-10-09] MEDS: ACETAMINOPHEN/HYDROcodone 325 MG/5 MG TAB PO PRN (07:40)
[2017-10-09] MEDS: ACETAMINOPHEN 1000 MG/100 ML VIAL IV SCH ×2 (07:57→08:43)
[2017-10-09] MEDS: DULoxetine HCl DR 60 MG CAP PO SCH (07:57)
[2017-10-09] MEDS: ASPIRIN EC 325 MG TABEC PO SCH (07:58)
[2017-10-09] MEDS: ESTRADIOL 1 MG TAB PO SCH (07:58)
[2017-10-09] MEDS: DOCUSATE SODIUM 100 MG CAP PO SCH (07:58)
[2017-10-09] MEDS: CYANOCOBALAMIN 1,000 MCG TAB PO SCH (07:58)
[2017-10-09] MEDS: BETHANECHOL CHL 10 MG TAB PO SCH (07:58)
[2017-10-09] MEDS: TOLTERODINE TARTRATE 2 MG CAP LA PO SCH (07:59)
[2017-10-09] MEDS: PANTOPRAZOLE SOD 40 MG DELAYED RELEASE TAB PO SCH (07:59)
[2017-10-09 11:34] VITALS: BP 92/59; PULSE 98; RESP 19; TEMP 97.9; O2SAT 93
== END 2017-10-09 16:02 | disposition home health service (06) | DRG 483 ==
LOC: HSDI 08:22 → N06B 18:19
PROVIDERS: ADMIT Orthopaedic Surgery; ATTEND Orthopaedic Surgery
PROC: 3E0T3BZ Introduction of Anesthetic Agent into Peripheral Nerves and Plexi, Percutaneous Approach (ICD-10-PCS; 2017-10-07)
PROC: 0RRK0JZ Replacement of Left Shoulder Joint with Synthetic Substitute, Open Approach (ICD-10-PCS; principal; 2017-10-07 11:44)
DX: M19.012 Primary osteoarthritis, left shoulder (principal); G89.29 Other chronic pain; R03.0 Elevated blood-pressure reading, without diagnosis of hypertension; K21.9 Gastro-esophageal reflux disease without esophagitis; M19.011 Primary osteoarthritis, right shoulder
CPT/HCPCS: 73030; 80048; 85014; 85018; 94150; C1776; J0131; J0171; J0690; J1580; J2250; J2370; J2405; J2550; J2710; J2765; J3010; J3370; J7030; J7050; J7120; J8501; Q0169

== ENCOUNTER → 2017-12-04 | Outpatient (CLI) | payer MEDICARE ==
[~2017-12-04] VITALS: Ht 152.4 cm; Wt 56.1 kg
[~2017-12-04] MED LIST changes: +CHLORHEXIDINE GLUCONATE 2 % 1 PACK (2 CLOTHS) TOPICAL PRN; +DO NOT ADM ANY ANTICOAGULANT DRUGS PRN; +HYDR-3516 PO; +LACTATED RINGER'S 1000 ML IV PRN; +LIDOCAINE HCL 1% PF 5 ML SYRINGE OTHER ONE; +METOPROLOL TARTRATE 25 MG TAB PO PRN; +ONABOTULINUMTOXINA INJ 100 UNITS/VIAL ONE; +ONDANSETRON HCL 4 MG/2 ML VIAL ONE; -PERC5TAB12 PO; +POVIDONE IODINE 5% (ANTISEPSIS KIT) 4 APPLICATIONS EACH NARE PRN; +PROPOFOL 200 MG/20 ML AMP IV ONE; +SODIUM CHLORID 0.9% 500 ML IV PRN; +SUCCINYLCHOLINE CHLORIDE 100 MG/5 ML SYRINGE IV PUSH ONE; +TRAM50TA PO; +ZINC50TA2 PO; +ZOFR4TAB PO
--- NOTE | 2017-12-04 10:52 | GIPROC ---
[facility] [address] [facility]. [facility], [address] EGD PROCEDURE REPORT EXAM DATE: 12/04/2017 PATIENT NAME: Kyra Espinoza MR #: [id number] BIRTHDATE: 1950 ATTENDING: Rasta Grier MD ORDER #: [id number] DISTRESSER: Gabriel De Oliveira and Nia Solomon STATUS: outpatient INDICATIONS: The patient is a 67 yr old female here for an EGD due to epigastric abdominal pain, dyspepsia, and vomiting PROCEDURE PERFORMED: EGD w/ directed submucosal injection(s), any substance EGD w/ dilation of esophagus via guidewire MEDICATIONS: None and Per Anesthesia. TOPICAL ANESTHETIC: CONSENT: The patient understands the risks and benefits of the procedure and understands that these risks include, but are not limited to: sedation, allergic reaction, infection, perforation and/or bleeding. Alternative means of evaluation and treatment include, among others: physical exam, x-rays, and/or surgical intervention. The patient elects to proceed with this endoscopic procedure. medical equipment was checked for proper function. Hand hygiene and appropriate measures for infection prevention was taken. After the risks, benefits and alternatives of the procedure were thoroughly explained, Informed consent was verified, confirmed and timeout was successfully executed by the treatment team. The patient was anesthetized with topical anesthesia and the Pentax EG-[id number] endoscope was introduced through the mouth and advanced to the second portion of the duodenum. Retroflexed views revealed no abnormalities The gastroscope was then slowly withdrawn and removed. ESOPHAGUS: There was LA Class A esophagitis noted. STOMACH: There was erythematous moderate gastritis in the gastric antrum. Injected a total of 4 cc botox 25 units each for a total of 100units. DUODENUM: The duodenal mucosa appeared normal in the bulb and second portion of the duodenum. ADVERSE EVENTS: There were no complications. IMPRESSIONS: 1. There was LA Class A esophagitis noted 2. There was erythematous gastritis in the gastric antrum; injected a total of 4 cc botox 25 units each for a total of 100units 3. Normal duodenal mucosa in the bulb and second portion of the duodenum 4. Retroflexed views revealed no abnormalities RECOMMENDATIONS: 1. Await biopsy results. Biopsy results will not be ready for 7-10 days. If you don't hear from us in two weeks, call our office for biopsy results. 2. Anti-reflux regimen 3. Continue PPI 4. Avoid NSAIDS PATIENT CONDITION: stable DISPOSITION: Inpatient REPEAT EXAM: Return 1 year EGD Rasta Grier MD eSigned: Rasta Grier MD 12/04/2017 10:51 AM cc: PATIENT NAME: Kyra Espinoza MR#: [id number]
[2017-12-04 11:47] VITALS: BP 124/75; PULSE 79; RESP 18; TEMP 98; O2SAT 99
== END ==
LOC: HSDC 08:24
PROVIDERS: ATTEND Internal Medicine Gastroenterology
DX: K20.8 Other esophagitis (principal); K29.70 Gastritis, unspecified, without bleeding; R10.13 Epigastric pain; R11.10 Vomiting, unspecified; R11.2 Nausea with vomiting, unspecified; R13.10 Dysphagia, unspecified; K31.84 Gastroparesis; K21.9 Gastro-esophageal reflux disease without esophagitis; R03.0 Elevated blood-pressure reading, without diagnosis of hypertension; M62.838 Other muscle spasm; G51.0 Bell's palsy; Q74.1 Congenital malformation of knee; R11.0 Nausea; K27.9 Peptic ulcer, site unspecified, unspecified as acute or chronic, without hemorrhage or perforation; N20.1 Calculus of ureter; G56.00 Carpal tunnel syndrome, unspecified upper limb; G89.29 Other chronic pain; R05 Cough; Z89.429 Acquired absence of other toe(s), unspecified side; M19.019 Primary osteoarthritis, unspecified shoulder; M46.96 Unspecified inflammatory spondylopathy, lumbar region; R15.9 Full incontinence of feces; M79.673 Pain in unspecified foot; M51.36 Other intervertebral disc degeneration, lumbar region; H04.123 Dry eye syndrome of bilateral lacrimal glands; K13.0 Diseases of lips; H40.003 Preglaucoma, unspecified, bilateral; R31.9 Hematuria, unspecified; E78.5 Hyperlipidemia, unspecified; M75.40 Impingement syndrome of unspecified shoulder; K58.9 Irritable bowel syndrome, unspecified; G43.909 Migraine, unspecified, not intractable, without status migrainosus; H40.053 Ocular hypertension, bilateral; H43.811 Vitreous degeneration, right eye; I49.3 Ventricular premature depolarization; M19.012 Primary osteoarthritis, left shoulder
CPT/HCPCS: 00731; 43236; 43248; C1769; J0330; J0585; J2405